=== PATIENT | female | born 1990 | race Caucasian/White ===

== ENCOUNTER → 2017-08-20 | Emergency (ER) | payer OTHER ==
[~2017-08-20] VITALS: Ht 167.6 cm; Wt 106.6 kg
[~2017-08-20] MED LIST: PEPCID40 MG PO; ZOFRAN4 MG PO
== END | disposition home or self-care (01) ==
LOC: ER 21:03
DX: K52.9 Noninfective gastroenteritis and colitis, unspecified (principal)